=== PATIENT | female | born 1980 | race American Indian/Alaskan Native ===

== ENCOUNTER 2019-10-06 08:29 | Emergency (ER) | payer SELFPAY ==
[2019-10-06 08:37] VITALS: BP 131/78
[2019-10-06] MEDS ORDERED: PENICILLIN G BENZATHINE 1.2 MILLION UNIT/2 ML INJ IM ONE (10:31)
[2019-10-06] MEDS ORDERED: dexAMETHasone 20 MG/5 ML VIAL IM ONE (10:31)
--- NOTE | 2019-10-06 11:00 | Emergency Department Report ---
ED General Adult HPI - General Chief complaint: Sore Throat Stated complaint: POSS GLASS IN THROAT Time Seen by Provider: 10/06/19 10:30 Source: patient Mode of arrival: Ambulatory Limitations: No Limitations - History of Present Illness Initial comments: Patient is a 39-year-old female who is presenting with sore throat for the past 3 days. Patient is unable to eat or drink secondary to pain. She is able to swallow her own saliva. She has difficulty speaking. She denies fevers chills cough cold congestion nausea vomiting. Patient states she has been 10 out of 10 pain with swallowing. - Related Data Previous Rx's Medication Instructions Recorded Last Taken Type Amoxicillin [Trimox CAP] 500 mg PO Q8H #30 capsule 11/14/15 Unknown Rx HYDROcodone/ACETAMINOPHEN 15 ml PO Q6H PRN #150 solution 10/06/19 Unknown Rx [Hydrocodon-Acetamin 7.5-325/15] Allergies Allergy/AdvReac Type Severity Reaction Status Date / Time sulfamethoxazole Allergy Hives Verified 11/13/15 14:14 [From Bactrim] trimethoprim [From Bactrim] Allergy Hives Verified 11/13/15 14:14 ED Review of Systems ROS: Stated complaint: POSS GLASS IN THROAT Other details as noted in HPI Comment: All other systems reviewed and negative ED Past Medical Hx - Past Medical History Previous Medical History?: No - Surgical History Past Surgical History?: No - Social History Smoking Status: Current Some Day Smoker - Medications Home Medications: Home Medications Medication Instructions Recorded Confirmed Last Taken Type Amoxicillin [Trimox CAP] 500 mg PO Q8H #30 capsule 11/14/15 Unknown Rx HYDROcodone/ACETAMINOPHEN 15 ml PO Q6H PRN #150 solution 10/06/19 Unknown Rx [Hydrocodon-Acetamin 7.5-325/15] ED Physical Exam - General Limitations: No Limitations General appearance: alert, in no apparent distress - Head Head exam: Present: atraumatic, normocephalic - Eye Eye exam: Present: normal appearance. Absent: PERRL, EOMI - ENT ENT exam: Present: mucous membranes moist. Absent: normal orophraynx - Expanded ENT Exam Expanded Throat exam: Positive: tonsillar erythema, tonsillomegaly, tonsillar exudate - Neck Neck exam: Present: normal inspection, lymphadenopathy - Respiratory Respiratory exam: Present: normal lung sounds bilaterally. Absent: respiratory distress, wheezes, rales - Cardiovascular Cardiovascular Exam: Present: regular rate, normal rhythm. Absent: normal heart sounds, systolic murmur, diastolic murmur, rubs, gallop - GI/Abdominal GI/Abdominal exam: Present: soft, normal bowel sounds. Absent: distended, tenderness, guarding, rebound - Extremities Exam Extremities exam: Present: normal inspection - Back Exam Back exam: Present: normal inspection - Neurological Exam Neurological exam: Present: alert, oriented X3 - Psychiatric Psychiatric exam: Present: normal affect, normal mood - Skin Skin exam: Present: warm, dry, intact, normal color. Absent: rash ED Course Vital Signs 10/06/19 08:33 Temperature 98.8 F Pulse Rate 108 H Respiratory 16 Rate Blood Pressure 131/78 O2 Sat by Pulse 100 Oximetry ED Medical Decision Making - Medical Decision Making Patient meets [facility] criteria for. Treatment for strep pharyngitis. Patient's tonsillar swelling is extensive however her uvula is midline and does not appear as though she has a drainable abscess. Patient to be started on Bicillin and Decadron and she'll be discharged home with medication for symptomatic relief. Critical care attestation.: If time is entered above; I have spent that time in minutes in the direct care of this critically ill patient, excluding procedure time. ED Disposition Clinical Impression: Exudative pharyngitis Disposition: DC-01 TO HOME OR SELFCARE Is pt being admited?: No Does the pt Need Aspirin: No Condition: Stable Instructions: Pharyngitis (ED) Referrals: TYLOR CARREON MD [Staff Physician] - 3-5 Days Time of Disposition: 11:00
== END 2019-10-06 11:20 | disposition home or self-care (01) ==
LOC: ED 08:29
DX: J02.9 Acute pharyngitis, unspecified (principal); F17.200 Nicotine dependence, unspecified, uncomplicated
CPT/HCPCS: 96372; 99281; J0561; J1100